=== PATIENT | female | born 2000 | race Caucasian/White ===

== ENCOUNTER 2019-01-08 09:31 | Emergency (ER) | payer BC ==
--- NOTE | 2019-01-08 10:00 | ED ---
Syncope/Near Syncope - HPI Summary HPI Summary: 18-year-old female with no significant past medical history presents to the emergency Department today with chief complaint of 2 episodes of syncope this morning. She states over the last 3 days she has not felt well and then this morning when she was walking around her house she syncopized twice. She states prior to these episodes she felt "lightheaded". She denies incontinence or periods of confusion after these episodes. She denies any use of any medications including control. She states she has had an upper respiratory illness for 3 days. Pt denies trauma from her fall. She endorses feelings of a fever, cough, congestion. Patient denies chest pain, palpitations , vertigo, headache, numbness or tingling, difficulties with gait, past seizure disorders, family history of sudden , family history of dysrhythmias. She denies alcohol, drug use, tobacco use. - History Of Current Complaint Chief Complaint: EDSyncope Time Seen by Provider: 01/08/19 09:45 Hx Obtained From: Patient Onset/Duration: Sudden Onset, Lasting Hours Timing: Intermittent Episode Lasting Context: Unwitnessed, Loss Of Consciousness Activity At Onset: Unknown Associated Head Trauma: No Alleviating Factor(s): Rest Associated Signs And Symptoms: Lightheadedness Frequency: Episodes x___ - 2 - Allergies/Home Medications Allergies/Adverse Reactions: Allergies Allergy/AdvReac Type Severity Reaction Status Date / Time No Known Allergies Allergy Verified 01/08/19 10:01 PMH/Surg Hx/FS Hx/Imm Hx Neurological History: Denies: Hx Seizures Infectious Disease History: No Infectious Disease History: Denies: Traveled Outside the [place] in Last 30 Days Review of Systems Constitutional: Negative Eyes: Negative Cardiovascular: Negative Respiratory: Negative Gastrointestinal: Negative Positive: no symptoms reported Musculoskeletal: Negative Skin: Negative Positive: Syncope Psychological: Normal All Other Systems Reviewed And Are Negative: Yes Physical Exam Triage Information Reviewed: Yes Vital Signs On Initial Exam: Initial Vitals Temp Pulse Resp BP Pulse Ox 97.1 F 127 19 127/86 97 01/08/19 09:32 01/08/19 09:32 01/08/19 09:32 01/08/19 09:32 01/08/19 09:32 Vital Signs Reviewed: Yes Appearance: Positive: Well-Appearing, No Pain Distress, Well-Nourished Skin: Positive: Warm, Skin Color Reflects Adequate Perfusion Head/Face: Positive: Normal Head/Face Inspection Eyes: Positive: EOMI, SHAILESH, Conjunctiva Clear ENT: Positive: Hearing grossly normal Respiratory/Lung Sounds: Positive: Clear to Auscultation, Breath Sounds Present Cardiovascular: Positive: RRR, S1, S2 Abdomen Description: Positive: Nontender, Soft Bowel Sounds: Positive: Present Musculoskeletal: Positive: Strength/ROM Intact Neurological: Positive: Sensory/Motor Intact, Alert, Oriented to Person Place, Time, Normal Gait, Finger to Nose, Speech Normal Psychiatric: Positive: Normal AVPU Assessment: Alert Procedures - Sedation Patient Received Moderate/Deep Sedation with Procedure: No Diagnostics - Vital Signs Vital Signs Temp Pulse Resp BP Pulse Ox 01/08/19 09:32 97.1 F 127 19 127/86 97 - Laboratory Result Diagrams: 01/08/19 09:58 01/08/19 09:54 Lab Statement: Any lab studies that have been ordered have been reviewed, and results considered in the medical decision making process. Course/Dx Course Of Treatment: He had Patient was evaluated in the emergency department today due to a syncopal episode she had this morning. The patient was seen and examined. Vital signs are stable and she was afebrile. An EKG and laboratory studies were obtained. EKG showed sinus tachycardia at a rate of 104 bpm, normal axis, No ST elevation or ischemia. No evidence of or WPW. Normal NH and QTc interval. Laboratory results returned showing no evidence of electrolyte abnormalities, renal disease, hepatic disease. CBC shows mild leukocytosis with a white blood cell count of 12.9. Urinalysis returned suggestive of cystitis with blood, leukocyte esterase, white blood cell, bacteria present. Seizure was considered in differential diagnoses however due to a lack of postictal state , incontinence, other signs of seizure it was deemed unlikely, especially considering the patient does not have any significant history of epilepsy. Orthostatic vital signs were performed and showed no evidence of autonomic instability or orthostasis due to position. Reevaluation showed no life-threatening cause for her syncopal episodes however these may be caused by an underlying urinary tract infection which she does have. She was given 1 dose of Keflex in the emergency department and sent home with 7 day course for treatment of this issue. She is to follow up with her primary care provider for further evaluation and management of her syncopal episodes. She was informed to return to the emergency department immediately if she developed any new or worsening symptoms. Prior to discharger her tachycardia resolved to a rate of 92. - Diagnoses Differential Diagnosis/HQI/PQRI: Positive: Dysrhythmia, Ectopic , Hypoglycemia, Hypovolemia, Pulmonary Embolism, Vasovagal Episode Provider Diagnoses: Syncope, Cystitis Discharge ED - Sign-Out/Discharge Documenting (check all that apply): Patient Departure - Discharge Plan Condition: Stable Disposition: HOME Prescriptions: Cephalexin CAP* [Keflex CAP*] 500 mg PO QID #28 cap Cephalexin CAP* [Keflex CAP*] 500 mg PO QID #28 cap Patient Education Materials: Urinary Tract Infection in Women (ED) [facility] - 2 Days Additional Instructions: You were seen in the emergency department today due to a syncopal episode this morning. An EKG and laboratory studies were done which revealed no evidence of acute medical processes which required immediate intervention. During your stay it was discovered that you have a urinary tract infection. To treat this, please take the antibiotics I sent to your pharmacy as directed. Please finish the entire course of antibiotic therapy. If you develop any new or worsening symptoms please return to emergency department immediately. Please follow-up with your primary care provider or clinic for further evaluation and management of your syncopal episodes. - Billing Disposition and Condition Condition: STABLE Disposition: Home
[2019-01-08 10:05] LABS: Hematocrit 39 % (35-47); Hemoglobin 13.4 g/dL (12.0-16.0); Mean Corpuscular HGB Conc 34 g/dL (31-36); Mean Corpuscular Hemoglobin 29 pg (27-31); Mean Corpuscular Volume 85 fL (80-97); Mean Platelet Volume 8.4 fL (7.4-10.4); Platelet Count 231 10^3/uL (150-450); Red Blood Count 4.63 10^6 /uL (3.70-4.87); Red Cell Distribution Width 13 % (10-15); White Blood Count 12.9 10^3/uL (3.5-10.8)
[2019-01-08 10:23] LABS: Albumin 4.7 g/dL (3.2-5.2); Albumin/Globulin Ratio 1.2 (1-3); BUN/Creatinine Ratio 11.8 (8-20); Calcium 9.8 mg/dL (8.6-10.3); EGFR African American 104.3 (>60); EGFR Non-African American 86.2 (>60); Globulin 3.8 g/dL (2-4); Potassium 3.7 mmol/L (3.5-5.0); Total Bilirubin 1.1 mg/dL (0.2-1.0); Total Protein 8.5 g/dL (6.4-8.9)
[2019-01-08 10:24] LABS: Urine Appearance Turbid; Urine Bilirubin Negative (Negative); Urine Blood 2+ (Negative); Urine Color Yellow; Urine Glucose Negative (Negative); Urine Ketones Trace (Negative); Urine Nitrite Negative (Negative); Urine Protein Negative (Negative); Urine Urobilinogen Negative (Negative)
[2019-01-08 10:28] LABS: Urine Bacteria 3+ (Absent); Urine Red Blood Cell 2+(6-10/hpf) (Absent); Urine Squamous Epithelial Cell Present (Absent); Urine White Blood Cell 2+(11-20/hpf) (Absent)
[2019-01-08] MEDS ORDERED: Cephalexin CAP* 500 MG PO ONE (10:58)
[2019-01-08 12:02] VITALS: BP 106/73
[2019-01-08 12:33] LABS: TSH (Thyroid Stimulating Horm) 1.93 mcIU/mL (0.34-5.60)
[2019-01-08 14:06] LABS: ABS Lymphocytes 1.1 10^3/ul (1.0-4.8); ABS Monocytes 1.8 10^3/ul (0-0.8); ABS Neutrophils 10.1 10^3/ul (1.5-7.7); Lymphocyte % 8.2 %
== END 2019-01-08 12:05 | disposition home or self-care (01) ==
LOC: ED 09:31
DX: R55 Syncope and collapse (principal); N30.90 Cystitis, unspecified without hematuria; R00.0 Tachycardia, unspecified
CPT/HCPCS: 36415; 80053; 81003; 81015; 83735; 84443; 84484; 85025; 87086; 93005; 99283; A9270-GY